=== PATIENT | female | born 1975 | race Hispanic/Latino ===

== ENCOUNTER 2018-03-25 21:47 | Inpatient (IN) | payer MEDICAID, SELFPAY ==
[2018-03-25 22:15] LABS: Bilirubin Negative (Negative); Blood, Urine Moderate (Negative); Clarity CLEAR (Clear); Glucose, Urine (Dipstick) Negative (Negative); Leukocyte Negative (Negative); Nitrite Negative (Negative); Protein, Urine (Dipstick) Trace mg/dL (Neg-Trace); Specific Gravity, Urine 1.018 (1.002-1.036); pH, Urine 7.5 (5.0-9.0)
[2018-03-25 22:16] LABS: #Eosinphils 0.1 thou/uL (0.0-0.7); #Lymphocytes 1.4 thou/uL (1.20-3.40); #Monocytes 0.6 thou/uL (0.11-0.59); #Neutrophils 6.8 thou/uL (1.40-6.50); %Basophils 0.3 % (0.0-1.0); %Eosinophils 0.6 % (0.0-10.0); %Lymphocytes 15.7 % (21.0-51.0); %Monocytes 7.1 % (0.0-10.0); %Neutrophils 76.4 % (42.0-75.0); Hemoglobin 14.2 g/dL (12.0-16.0); Mean Corpuscular HGB CONC 32.9 g/dL (32.0-36.0); Mean Corpuscular Hemoglobin 29.5 pg (27.0-31.0); Mean Corpuscular Volume 89.7 fL (78.0-98.0); Mean Platelet Volume 8.3 fL (7.4-10.4); Platelet Count 366 thou/uL (130-400); RBC Distribution Width 11.4 % (11.5-14.5); Red Blood Cell (RBC) Count 4.83 mill/uL (4.20-5.40)
[2018-03-25 22:17] LABS: Bacteria/HPF None Seen HPF (None Seen); Hyaline Casts/LPF 0-3 HYALINE CAST LPF (0-3 Hyaline); Pathc Cast-AUWi Flag 0.58 (0-2.49); RBC/HPF GREATER THAN 50-TNTC HPF (0-3); Squamous Epithelial 0-3 HPF (0-3); WBC/HPF 0-3 HPF (0-3)
[2018-03-25 22:18] LABS: Pregnancy Test - Urine (BHCG) Negative (Negative); Pregu Control Background? CLEAR/WHITE (CLR/WHITE); Pregu Control Bar Appear? YES (CONTROL BAR); Specific Gravity 1.018 (1.002-1.036)
[2018-03-25] MEDS ORDERED: Ondansetron PF 4 MG/2 ML Vial ONE (22:33)
[2018-03-25] MEDS ORDERED: Ketorolac Tromethamine 30 MG/ML VIAL ONE (22:33)
[2018-03-25] MEDS ORDERED: Pantoprazole 40 MG VIAL ONE (22:33)
[2018-03-25 22:34] LABS: ALT (SGPT) 17 U/L (8-55); AST (SGOT) 14 U/L (5-34); Albumin 4.2 g/dL (3.5-5.0); Alkaline Phosphatase 66 U/L (40-150); Anion Gap 14 mmol/L (10-20); BUN (Urea Nitrogen) 4 mg/dL (7.0-18.7); Bilirubin, Total 0.4 mg/dL (0.2-1.2); Calc. Creatinine Clearance 0 mL/min (70-130); Calcium 9.4 mg/dL (7.8-10.44); Carbon Dioxide 27 mmol/L (22-29); Chloride 99 mmol/L (98-107); Estimated GFR-MDRD 89; Globulin 3.7 g/dL (2.4-3.5); Glucose 121 mg/dL (70-105); Lipase 16 U/L (8-78); Potassium 3.6 mmol/L (3.5-5.1); Protein, Total 7.9 g/dL (6.0-8.3); Sodium 136 mmol/L (136-145)
[2018-03-26] MEDS ORDERED: Ondansetron PF 4 MG/2 ML Vial IVP PRN (01:03)
[2018-03-26] MEDS: Sodium Chloride 0.9% 1,000 ML IV SCH ×2 (01:10→18:19)
[2018-03-26 01:33] VITALS: BMI 29.7
[2018-03-26] MEDS: Morphine 2 MG/ML SYRINGE SLOW IVP PRN ×3 (01:57→10:12)
[2018-03-26] MEDS ORDERED: Ketorolac Tromethamine 30 MG/ML VIAL IVP PRN (03:54)
[2018-03-26] MEDS ORDERED: Acetaminophen 500 MG TAB PO PRN (03:56)
--- NOTE | 2018-03-26 07:49 | ULT ---
RIGHT UPPER QUADRANT ULTRASOUND: HISTORY: A 43-year-old female with a history of abdominal pain. FINDINGS: Gallbladder wall is markedly thick with multiple gallstones and sludge within the gallbladder. The c ommon duct is within normal limits. No intrahepatic ductal dilatation. Visualized pancreas and righ t kidney are unremarkable. Positive Wheeler's sign. IMPRESSION: Multiple cholelithiasis with abnormal thick gallbladder wall with a positive Wheeler's sign certainly concerning for acute cholecystitis in addition to cholelithiasis. POS: [facility]
--- NOTE | 2018-03-26 10:31 | HP ---
DATE OF ADMISSION: 03/26/2018 HISTORY OF PRESENT ILLNESS: Ms. Resendiz is a Kyrgyz speaking only 43-year-old G4, P4 who presente d to the emergency department with recurrent epigastric to right upper quadrant abdominal pain. She has been experiencing this sort of pain over the last 5-8 years. Pain is usually postprandial in teri ure. Over the last 3 days; however, the pain has been persistent occasionally radiating to the back and associated with multiple episodes of nausea and two bouts of nonbilious emesis. She denies any f requent flatulence or abdominal distention. She denies any diarrhea, fevers or chills. Patient was seen in the emergency department. Workup at the time included ultrasound of the gallblad brayan, which was suspicious for acute cholecystitis. The patient was referred to General Surgery. At the time of my evaluation, she rates her pain at 5/10, although at maximum intensity, the pain ranges between 8-9/10. PAST MEDICAL HISTORY: Diabetes mellitus, hypertension, heart disease, thyroid dysfunction or cancers . SURGICAL HISTORY: Denies any previous surgeries. SOCIAL HISTORY: She is and a homemaker. She denies any cigarette smoking, ethanol or illici t drug abuse. FAMILY HISTORY: Denies any family history of diabetes mellitus, hypertension, heart disease or cance r. PREHOSPITALIZATION MEDICATIONS: None. ALLERGIES: Patient denies any known drug allergies. REVIEW OF SYSTEMS: Ten point review of systems essentially unremarkable except as stated in the past medical history and chief complaint. PHYSICAL EXAMINATION: GENERAL: This reveals a 43-year-old normally developed woman who is otherwise coherent and interacti ve and appears stated age. The patient is alert and oriented x3, appears to be in no acute distress at the time of my evaluation. VITAL SIGNS: Blood pressure includes 119/84, pulse 88, respiration is 18, temperature is 99.7 degree s Fahrenheit, oxygen saturation is 98% on room air. HEENT: Reveals normocephalic and atraumatic. Pupils are equal, round, and reactive to light and acc ommodation. Extraocular muscles are intact bilaterally. No sclerae icterus present. HEART: Reveals regular rate and rhythm, no murmurs or gallops auscultated. LUNGS: Clear to auscultation bilaterally. Breathing regular and unlabored. ABDOMEN: Soft and nondistended. She has epigastric to right upper quadrant tenderness to palpation. She has a positive Wheeler sign. Otherwise, liver and spleen nonpalpable below costal margin. EXTREMITIES: Reveals 2+ radial and pedal pulses bilaterally. No ankle edema is present. NEUROLOGIC: Reveals no focal deficits present. LABORATORY FINDINGS: Today includes a CBC with 9000 white blood cells, hemoglobin and hematocrit are 14.2 and 43.3 respectively. Platelet count is 366,000. Metabolic profile: Sodium 136, potassium 3 .6, chloride is 99, bicarbonate 27, BUN 4, creatinine 0.72, glucose 121. Total bilirubin 0.4, AST an d ALT are normal at 14 and 17 respectively. Serum lipase is also normal at 16. IMAGING: I have personally reviewed the abdominal ultrasound, which reveals multiple intraluminal ga llstones. There is gallbladder wall thickening and small pericholecystic fluid present. Common bile duct size is normal in diameter for this patient's age at 2.5 mm. IMPRESSION: Acute cholecystitis with cholelithiasis. PLAN: Laparoscopic cholecystectomy. I have advised the patient of the above findings and plan. I h ave also informed of the risks and benefits of the proposed surgery to include, but not limited to bl eeding, infection, injury to bile duct or surrounding structures. This information was given to the patient in the presence of her and her nurse at bedside. Patient indicated understanding of information given and has granted consent for this admission and surgical intervention.
[2018-03-26] MEDS ORDERED: traMADol HCl 50 MG TAB PO PRN ×2 (11:32)
[2018-03-26] MEDS ORDERED: CEFAZOLIN 2 GM/50 ML BAG ONE (11:46)
[2018-03-26] MEDS ORDERED: Bupivacaine/Epinephrine 0.25% 30 ML VIAL ONE (12:16)
[2018-03-26] MEDS ORDERED: Fentanyl 100 MCG/2 ML VIAL ONE ×2 (13:02→14:59)
[2018-03-26] MEDS ORDERED: Ibuprofen 600 MG TAB PO SCH (14:00)
[2018-03-26 16:17] VITALS: BP 128/74; TEMP 97.6
[2018-03-26] MEDS: Acetaminophen 500 MG TAB PO SCH ×2 (16:18→17:36)
--- NOTE | 2018-03-26 19:30 | OP ---
DATE OF OPERATION: 03/26/2018 PREOPERATIVE DIAGNOSES: Acute cholecystitis with cholelithiasis. POSTOPERATIVE DIAGNOSES: Acute cholecystitis with cholelithiasis. OPERATION PERFORMED: Laparoscopic cholecystectomy. SURGEON: Fabrice Curiel DO ANESTHESIA: General endotracheal. ESTIMATED BLOOD LOSS: 25 mL FLUIDS GIVEN: 1000 mL crystalloids. SPONGE AND INSTRUMENT COUNT: Certified as correct x2. COMPLICATIONS: None apparent at the time of operation. INDICATIONS FOR PROCEDURE: A 43-year-old woman presented with recurrent epigastric to right upper quadrant abdominal pain, postprandial in nature. Clinical radiographic examination was consistent with acute cholecystitis with cholelithiasis for whi ch patient was brought to the operating room for cholecystectomy. Findings are consistent with gallbladder in the usual anatomic location. Gallbladder was markedly di stended and tense and contained white bile. DESCRIPTION OF PROCEDURE: Informed consent was obtained from the patient who was brought to the oper ating room and placed in supine position. Following general anesthesia, abdomen was sterilely preppe d and draped in the usual fashion. Skin below the umbilicus was infiltrated with 0.25% Marcaine with epinephrine. A small curvilinear infraumbilical incision was made using an #11 scalpel. Umbilical stalk grasped with Riley's and elevated. Veress needle was inserted through the incision and placed in the peritoneal cavity through which the abdomen was insufflated with 3 liters of CO2 gas. Intra- abdominal pressure was noted at 2 mmHg. Upper limit of abdominal pressure was set at 15 mmHg. Follo wing abdominal insufflation, Veress needle removed and a 5 mm trocar introduced using a Visiport unde r laparoscopy. Laparoscopy confirmed proper placement of the port, no injuries to underlying structu res. Additional laparoscopy revealed gallbladder in the usual anatomic location partially encased by omental adhesions. Under direct laparoscopy, a 12 mm epigastric and two 5 mm right lateral subcosta l ports were placed after the overlying skin infiltrated with 0.25% Marcaine with epinephrine and emerson ropriate incision was made. The patient was placed in the reverse Trendelenburg position, rotated to her left. I introduced a Prestige grasper through the right lateral subcostal port, attempted to gr asp the markedly distended and tense gallbladder without success. I then decided to decompress the g allbladder using Endo suction catheter with cautery evacuating the excess white bile. The Prestige g rasper was then applied at the fundus of the gallbladder, which was elevated cephalad. Omental adhes ions were dissected free from the remainder of the gallbladder using a [place] dissector with cauter y. A second Prestige grasper was introduced through the right medial subcostal port grasping the Clinton tman's pouch, which was retracted laterally. Cystic duct was dissected free from surrounding structu res at the triangle of Calot dividing the duct between two clips, applying two clips proximally and o ne clip at the junction of the cystic duct and gallbladder. The cystic artery was dissected free fro m surrounding structures and divided between clips in a similar fashion. Gallbladder surface removed from the liver bed using cautery with good hemostasis. Gallbladder was delivered of the abdominal c avity using an EndoCatch. Operative site was inspected for good hemostasis. There was minor oozing of venous blood in the gallbladder fossa. Hemostasis was readily achieved using a 1 x 2 inch piece o f Fibrillar. Finding no other pathology, laparoscopy was terminated. Fascia of the epigastric port was closed using 0 Vicryl suture and Endo closure device under laparoscopy. Abdomen was desufflated. All ports and instruments were removed and accounted for. Skin incision was closed using 4-0 Monoc ryl suture in subcuticular fashion. Dermabond was applied over the incisional closure. The patient tolerated this operation without any apparent complication and was returned to recovery room in satis factory condition.
== END 2018-03-26 20:30 | disposition home or self-care (01) | DRG 419 ==
LOC: ERS 21:47 → SURG B 23:55
PROVIDERS: ADMIT Surgery; ATTEND Surgery
PROC: 0FT44ZZ Resection of Gallbladder, Percutaneous Endoscopic Approach (ICD-10-PCS; principal; 2018-03-26)
DX: K80.00 Calculus of gallbladder with acute cholecystitis without obstruction (principal); E11.9 Type 2 diabetes mellitus without complications; I10 Essential (primary) hypertension
CPT/HCPCS: 76705; 80053; 81003; 81015; 81025; 83690; 85025; 88304; 96361; 96374; 96375; C9113; J1885; J1956; J2270; J2405; J3010

== ENCOUNTER 2018-07-04 08:41 | Outpatient (CLI) | payer BC | END 2018-07-04 08:42 | disposition home or self-care (01) | LOC: BICMAMMO 08:41 | PROVIDERS: ATTEND Advanced Practice Midwife | DX: Z12.31 Encounter for screening mammogram for malignant neoplasm of breast (principal) | CPT/HCPCS: 77063; 77067 ==